=== PATIENT | female | born 1990 | race Two or more races ===

== ENCOUNTER 2018-01-21 10:36 | Emergency (ER) | payer MEDICAID ==
[~2018-01-21] VITALS: Ht 182.9 cm; Wt 54.4 kg
[2018-01-21 11:35] LABS: Urine Bacteria NONE SEEN /hpf (None Seen); Urine Blood Negative /uL (Negative); Urine Mucus FEW (None Seen); Urine Specific Gravity 1.034 (1.001-1.035); Urine WBC 1 /hpf (0 - 5)
[2018-01-21 15:16] VITALS: BP 109/67
== END 2018-01-21 16:28 | disposition home or self-care (01) ==
LOC: ER 10:36
DX: M54.6 Pain in thoracic spine (principal); J45.909 Unspecified asthma, uncomplicated; Z88.5 Allergy status to narcotic agent
CPT/HCPCS: 81001

== ENCOUNTER 2020-12-30 17:09 | Emergency (ER) | payer MEDICAID ==
[~2020-12-30] VITALS: Ht 162.6 cm; Wt 52.2 kg
[2020-12-30 18:58] VITALS: BP 103/66
[2020-12-30] MEDS ORDERED: ONDANSETRON ODT 4 MG TAB PO ONE (20:30)
[2020-12-30] MEDS ORDERED: ACETAMINOPHEN/CODEINE#3 (300/30mg) TAB PO ONE (20:30)
== END 2020-12-30 20:40 | disposition home or self-care (01) ==
LOC: ER 17:09 → EDBD 17:09 → ER 20:40
DX: S39.012A Strain of muscle, fascia and tendon of lower back, initial encounter (principal); S46.911A Strain of unspecified muscle, fascia and tendon at shoulder and upper arm level, right arm, initial encounter; J45.909 Unspecified asthma, uncomplicated; Z88.8 Allergy status to other drugs, medicaments and biological substances; V49.9XXA Car occupant (driver) (passenger) injured in unspecified traffic accident, initial encounter; Y93.89 Activity, other specified; Y92.410 Unspecified street and highway as the place of occurrence of the external cause; Y99.8 Other external cause status
CPT/HCPCS: 72100; 99283; Q0162